=== PATIENT | male | born 1970 | race Caucasian/White ===

== ENCOUNTER 2021-09-05 21:40 | Emergency (ER) | payer BC, OTHER ==
[2021-09-05] MEDS ORDERED: DIPHTH,PERTUSS(ACELL),TET 0.5 ML DISP.SYRIN IM ONE ×2 (21:55→21:58)
[2021-09-05 22:01] VITALS: BP 145/87; PULSE 67; TEMP 98.8; BMI 27.1
== END 2021-09-05 22:29 | disposition home or self-care (01) ==
LOC: FER 21:40
PROC: 0HQFXZZ Repair Right Hand Skin, External Approach (ICD-10-PCS; principal; 2021-09-05)
PROC: 3E0234Z Introduction of Serum, Toxoid and Vaccine into Muscle, Percutaneous Approach (ICD-10-PCS; 2021-09-05)
DX: S61.210A Laceration without foreign body of right index finger without damage to nail, initial encounter (principal); W25.XXXA Contact with sharp glass, initial encounter
CPT/HCPCS: 90715; 99282-25